=== PATIENT | male | born 1990 | race Caucasian/White ===

== ENCOUNTER 2022-03-14 15:08 | Outpatient (REF) | payer OTHER, SELFPAY ==
[2022-03-14 17:52] LABS: Appearance Urine Turbid; Color Urine Yellow; Glucose Urine UA Negative (Negative); Leukocyte Esterase Urine Negative (Negative); Nitrite Urine Negative (Negative); PH 8.5 (5.0-9.0); Urine Blood Negative (Negative); Urine Ketones Negative (Negative); Urine Protein Negative (Neg-Trace)
[2022-03-14 18:00] LABS: Bacteria Urine None Seen (None Seen); Hyaline Casts Urine 0-2 /LPF (0-2); RBC Urine 0-2 /HPF (0-2); Squamous Epithelial Cell Urine 0-2 /HPF (0-2); WBC Urine 0-5 /HPF (0-5)
[2022-03-14 18:26] LABS: Creatinine Urine 116.63 mg/dL; Total Protein Urine Random < 7 mg/dL (<12)
[2022-03-14 18:48] LABS: C Reactive Protein < 0.04 mg/dL (< or = 0.50)
[2022-03-14 18:53] LABS: Rheumatoid Factor < 13.0 IU/mL (<15.0); TSH reflex Free T4 1.52 uIU/mL (0.32-4.0)
[2022-03-14 18:57] LABS: Erythrocyte Sedimentation Rate 2 MM/HR (0-15)
[2022-03-19 00:47] LABS: Complement C3 95 mg/dL (82-185)
[2022-03-19 11:54] LABS: Thyroglobulin Antibodies <1 IU/mL (< or = 1); Thyroid Peroxidase Antibodies 1 IU/mL (<9)
[2022-03-19 15:18] LABS: Prot Elec - Alpha1 0.2 g/dL (0.2-0.3); Prot Elec - Alpha2 0.5 g/dL (0.5-0.9); Prot Elec - Beta 1 0.4 g/dL (0.4-0.6); Prot Elec - Beta 2 0.4 g/dL (0.2-0.5); Prot Elec - Gamma 0.9 g/dL (0.8-1.7); Prot Elec - Total Protein 7.4 g/dL (6.1-8.1)
[2022-03-19 16:23] LABS: Cyclic Citrullinated Peptide <16 UNITS
[2022-03-20 06:14] LABS: PTT (LAC) Screen 32 sec (<=40)
[2022-03-20 09:19] LABS: Anti DNA DS Antibody 1 IU/mL; Antibody to SS-A Antigen <1.0 NEG AI (<1.0 NEG); Antibody to SS-B Antigen <1.0 NEG AI (<1.0 NEG); Cardiolipin IgG Ab <2.0 GPL-U/mL; Cardiolipin IgM Ab <2.0 MPL-U/mL; SM/Ribonucleoprotein Ab <1.0 NEG AI (<1.0 NEG); Smith Protein <1.0 NEG AI (<1.0 NEG)
[2022-03-21 13:02] LABS: Centromere Protein A Ab <11 SI (<11); Centromere Protein B Ab <11 SI (<11); Fibrillarin Ab <11 SI (<11); PM SCL 100 Ab <11 SI (<11); PM SCL 75 Ab <11 SI (<11); RNA Polymerase III RP11 Ab <11 SI (<11); RNA Polymerase III RP155 Ab <11 SI (<11); SCL-70 Extractable Nuclear Ab <11 SI (<11); Th-To Ab <11 SI (<11); U1 SNRNP RNP 70KD <11 SI (<11); U1 SNRNP RNP A <11 SI (<11); U1 SNRNP RNP C <11 SI (<11)
[2022-03-21 14:13] LABS: DNAds, Crithidia Antibody Negative (Negative)
[2022-03-21 17:04] LABS: IgA 131 mg/dL (47-310); IgG 973 mg/dL (600-1640); IgM 32 mg/dL (50-300)
[2022-03-21 17:18] LABS: Beta-2 Glycoprotein IgA <2.0 U/mL (<20.0); Beta-2 Glycoprotein IgG <2.0 U/mL (<20.0); Beta-2 Glycoprotein IgM <2.0 U/mL (<20.0)
[2022-03-22 17:35] LABS: Cryoglobulin, Qual NONE DETECTED ((NDT))
== END 2022-03-14 15:09 | disposition home or self-care (01) ==
LOC: HO.LAB 15:08
PROVIDERS: PCP Pediatrics; Visit Provider Student in an Organized Health Care Education/Training Program
DX: M35.01 Sjogren syndrome with keratoconjunctivitis (principal); R76.8 Other specified abnormal immunological findings in serum; R53.83 Other fatigue; M25.541 Pain in joints of right hand; D68.61 Antiphospholipid syndrome
CPT/HCPCS: 36415; 81001; 82550; 82595; 82784; 84156; 84165; 84182; 84443; 85597; 85613; 85652; 85730; 86140; 86146; 86147; 86160; 86200; 86225; 86235; 86255; 86334; 86376; 86431; 86800; 99212

== ENCOUNTER → 2022-05-07 15:20 | Outpatient (BNVA) | payer OTHER, SELFPAY | PROVIDERS: PCP Pediatrics; Visit Provider Student in an Organized Health Care Education/Training Program | DX: R76.8 Other specified abnormal immunological findings in serum (principal) | CPT/HCPCS: 99212 ==

== ENCOUNTER 2022-12-24 14:40 | Outpatient (AMB) | payer OTHER, SELFPAY ==
--- NOTE | 2022-12-24 14:41 | MHC.OFFVIS ---
Intake Vital Signs 12/24/22 14:44 Height 5 ft 9 in Weight 141 lb 1.533 oz BMI 20.8 BP 106/64 Blood Pressure Location Rt brachial Position Sitting Pulse 89 Pulse Source Pulse Oximeter Temp 98.1 F Temp Source Skin Pulse Oximetry (%) 96 Intake Visit Reasons: Sjogren's Intake Note: Pt seen today for sjogren's follow up. Reports no changes Material Handling Equipment Stevedore Required: No Accompanied by: Self / Same As Patient Allergies Seasonal Allergies Allergy (Verified 12/24/22 14:45) Unknown HPI HPI Comments History of Present Illness Details 32-year-old male with Sjogren's (+ve MARLO, dry mouth, lymphocytic sialadenitis on lip biopsy) presents for follow-up. Patient states he is doing a little better overall. 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 Uses artificial tears once daily. Reports that his main symptoms remain his digestive issues. He is now avoids gluten and dairy, there are other food items that he is sensitive to but has difficulty with consistently avoiding them. He has gained a few lb since last visit. Denies any fevers. No other complaints Initial history: This is a 31-year-old male with a past medical history of GERD, IBS, seasonal affective disorder who presents for evaluation of Sjogren's. Patient has stated that in 2017 he was diagnosed with an autoimmune disease. At that time he would have joint and muscle pain with exertion. Fatigue as well as eye and mouth dryness. He had a lip biopsy in 2018 which showed lymphocytic sialadenitis. He was labeled as Sjogren syndrome. He has been using cevimeline since then and Biotene once or twice a day with improvement of his oral dryness. Denies any history of recurrent dental infections. He also has dry eyes and was evaluated by Ophthalmology years ago. He uses artificial tears once or twice a day which do help. Patient also has been having multiple GI complaints with dyspepsia and acid reflux. He had an EGD and biopsy which showed reflux esophagitis and was started on a PPI. Patient also states that he gets cold quite easily but denies any significant color changes of his fingers or toes. [facility] Medical History Scoliosis Seasonal affective disorder Diarrhea IBS (irritable bowel syndrome) Leukopenia Liver cyst Esophageal dysmotility Keratoconjunctivitis MARLO positive Sjogrens syndrome Inguinal hernia Hiatal hernia Surgical History Hx of tonsillectomy History of removal of skin mole Hx of colonoscopy Family History Father Gout Mother History of Roxi thyroiditis Maternal Uncle Acute arthritis Social History Household Members: Family Alcohol intake: never Patient Tobacco Use Status: Never used Tobacco Current occupational status: unemployed Review of Systems Eyes Reports dry eyes ENT Reports dry mouth GI Reports dyspepsia and Reports heartburn Physical Exam Vital Signs: Last Vital Signs Temp 98.1 F 12/24/22 14:44 Pulse 89 12/24/22 14:44 BP 106/64 12/24/22 14:44 Pulse Ox 96 12/24/22 14:44 BMI result Body Mass Index 20.8 Const General: cooperative, healthy appearing and comfortable Nutritional Appearance: thin Orientation/consciousness: patient oriented x3 Limitations: no limitations HEENT Head: Yes normocephalic and Yes atraumatic Mouth: moist mucous membranes Resp Effort & Inspection: normal respiratory effort and able to speak in complete sentences Auscultation: clear to auscultation bilaterally Cardio Rate: regular rate Rhythm: regular rhythm Heart sounds: S1 normal heart sound present and S2 normal heart sound present GI Inspection: No distended Palpation (GI): Soft to palpation and nontender Skin General skin exam: no rashes or lesions noted Neuro General: patient oriented x3 Extrem Other: No active synovitis Normal nailfold capillaroscopy Results Reviewed Results Reviewed: Labs 2017 MARLO 1:1280 homogeneous Lip biopsy 2018: Lymphocytic sialadenitis Assessment & Plan Assessment & Plan (1) Sjogren syndrome with keratoconjunctivitis: Code(s): M35.01 - Sjogren syndrome with keratoconjunctivitis Plan: This is a 31-year-old male with Sjogren's who presents for follow-up.? started in 2017 (arthralgias, dry eyes, dry mouth, lip biopsy showing lymphocytic sialadenitis,? MARLO 1-1280)? Hydroxychloroquine was suggested in the past but patient preferred not to take any medications. ? Patient's symptoms are well controlled with Evoxac twice daily, Biotene mouthwash once daily and artificial tears once daily Continue Evoxac 30 mg twice daily Follow-up in 1 year Plan I spent 15 minutes reviewing patient's chart, evaluating patient, counseling patient and documenting in the chart Medications: Changed From cevimeline 1 cap PO TID 180 caps 1RF To cevimeline 1 cap PO BID 360 caps 1RF Coding Level of Care Code Est Pt Level 3 (34780) Diagnoses Sjogren syndrome with keratoconjunctivitis M35.01
[2022-12-24 14:44] VITALS: BP 106/64; PULSE 89; TEMP 36.7; O2SAT 96; BMI 20.8
== END 2022-12-24 14:57 | disposition home or self-care (01) ==
PROVIDERS: PCP Pediatrics; Visit Provider Student in an Organized Health Care Education/Training Program
DX: M35.01 Sjogren syndrome with keratoconjunctivitis (principal)
CPT/HCPCS: 99213

== ENCOUNTER → 2022-12-24 14:40 | Outpatient (BNVA) | payer OTHER, SELFPAY | PROVIDERS: PCP Pediatrics; Visit Provider Student in an Organized Health Care Education/Training Program | DX: M35.01 Sjogren syndrome with keratoconjunctivitis (principal) | CPT/HCPCS: 99212 ==

== ENCOUNTER 2023-12-25 14:37 | Outpatient (AMB) | payer OTHER, SELFPAY ==
--- NOTE | 2023-12-25 14:58 | A.OFFVIS_ITS ---
Vital Signs 12/25/23 15:02 Height 5 ft 9 in Weight 164 lb 10.965 oz BMI 24.3 BP 102/70 Blood Pressure Location Lt brachial Position Sitting Pulse 83 Pulse Source Pulse Oximeter Pulse Oximetry (%) 95 Oxygen Delivery Method Room Air Intake Visit Reasons: Sjogren's Intake Note: Patient presents for Sjogren's. Allergies Seasonal Allergies Allergy (Verified 12/25/23 15:00) Unknown Medication List - Last Reconciled 12/25/23 by Mary Jo Cao MD albuterol sulfate 90 mcg/actuation (ProAir HFA) 2 puffs inhalation Q6H PRN azelastine 1 spray intranasal BID cetirizine (All Day Allergy (cetirizine)) 10 mg PO DAILY PRN cevimeline 1 cap PO BID citalopram 10 mg PO DAILY lorazepam 0.5 mg PO Q8H PRN omeprazole 20 mg PO DAILY HPI Comments Details: 33-year-old male with Sjogren's (+ve MARLO, dry mouth, lymphocytic sialadenitis on lip biopsy) presents for follow-up. Patient states that he is doing better overall. He started taking an antidepressant about 8 months ago with improved mood. He has put on about 25 lb of weight. He states that he is eating better. 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 He states that he still requires the Evoxac Twice daily. He also uses artificial tears and a humidifier at home. Denies any significant joint pain swelling or stiffness. Denies any skin rashes. Initial history: This is a 31-year-old male with a past medical history of GERD, IBS, seasonal affective disorder who presents for evaluation of Sjogren's. Patient has stated that in 2017 he was diagnosed with an autoimmune disease. At that time he would have joint and muscle pain with exertion. Fatigue as well as eye and mouth dryness. He had a lip biopsy in 2018 which showed lymphocytic sialadenitis. He was labeled as Sjogren syndrome. He has been using cevimeline since then and Biotene once or twice a day with improvement of his oral dryness. Denies any history of recurrent dental infections. He also has dry eyes and was evaluated by Ophthalmology years ago. He uses artificial tears once or twice a day which do help. Patient also has been having multiple GI complaints with dyspepsia and acid reflux. He had an EGD and biopsy which showed reflux esophagitis and was started on a PPI. Patient also states that he gets cold quite easily but denies any significant color changes of his fingers or toes. [facility] Medical History Scoliosis Seasonal affective disorder Diarrhea IBS (irritable bowel syndrome) Leukopenia Liver cyst Esophageal dysmotility Keratoconjunctivitis MARLO positive Sjogrens syndrome Inguinal hernia Hiatal hernia Surgical History Hx of tonsillectomy History of removal of skin mole Hx of colonoscopy Family History Father Gout Mother History of Roxi thyroiditis Maternal Uncle Acute arthritis Social History Household Members: Family Alcohol intake: never Patient Tobacco Use Status: Never used Tobacco Current occupational status: unemployed Review of Systems Eyes Reports dry eyes ENT Reports dry mouth Physical Exam Vital Signs: Last Vital Signs Pulse 83 12/25/23 15:02 BP 102/70 12/25/23 15:02 Pulse Ox 95 12/25/23 15:02 Oxygen Delivery Method Room Air 12/25/23 15:02 BMI result Body Mass Index 24.3 Const Other: Gained some weight since last visit. Looks healthier now General: cooperative, healthy appearing and comfortable Nutritional Appearance: average body habitus and well nourished Orientation/consciousness: patient oriented x3 Limitations: no limitations HEENT Head: Yes normocephalic and Yes atraumatic Mouth: moist mucous membranes Resp Effort & Inspection: normal respiratory effort and able to speak in complete sentences Auscultation: clear to auscultation bilaterally Cardio Rate: regular rate Rhythm: regular rhythm Heart sounds: S1 normal heart sound present and S2 normal heart sound present GI Inspection: No distended Palpation (GI): Soft to palpation and nontender Skin General skin exam: no rashes or lesions noted Neuro General: patient oriented x3 Extrem Other: No active synovitis Normal nailfold capillaroscopy Results Reviewed Results Reviewed: Labs 2017 MARLO 1:1280 homogeneous Lip biopsy 2018: Lymphocytic sialadenitis Assessment & Plan Assessment & Plan (1) Sjogren syndrome with keratoconjunctivitis: Code(s): M35.01 - Sjogren syndrome with keratoconjunctivitis Category: Medical Plan: This is a 33-year-old male with Sjogren's who presents for follow-up.? started in 2017 (arthralgias, dry eyes, dry mouth, lip biopsy showing lymphocytic sialadenitis,? MARLO 1-1280)? Hydroxychloroquine was suggested in the past but patient preferred not to take any medications. ? Patient's sicca symptoms are well controlled with Evoxac twice daily, Biotene mouthwash once daily and artificial tears once daily. Generally patient is doing better since starting an antidepressant. Patient is eating better, has gained weight and has a full-time job Continue Evoxac 30 mg twice daily Follow-up in 1 year Plan I spent 15 minutes reviewing patient's chart, evaluating patient, counseling patient and documenting in the chart Coding Level of Care Code Est Pt Level 3 (56807) Diagnoses Sjogren syndrome with keratoconjunctivitis M35.01
[2023-12-25 15:02] VITALS: BP 102/70; PULSE 83; O2SAT 95; BMI 24.3
== END 2023-12-25 15:19 | disposition home or self-care (01) ==
PROVIDERS: PCP Pediatrics; Visit Provider Student in an Organized Health Care Education/Training Program
DX: M35.01 Sjogren syndrome with keratoconjunctivitis (principal)
CPT/HCPCS: 99213

== ENCOUNTER → 2023-12-25 14:37 | Outpatient (BNVA) | payer OTHER, SELFPAY | PROVIDERS: PCP Pediatrics; Visit Provider Student in an Organized Health Care Education/Training Program | DX: M35.01 Sjogren syndrome with keratoconjunctivitis (principal) | CPT/HCPCS: 99212 ==

== ENCOUNTER 2024-10-08 12:59 | Outpatient (REF) | payer OTHER, SELFPAY ==
--- OUTSIDE RECORDS SUMMARY | 2024-10-08 13:01 | XMS_ITS | Continuity of Care Document ---
Author Organization [place] - [facility], Allergy Address [address] [address] Care Team Providers Care Php Consultant Name Role Phone GARY LANDEROS Primary Care Provider Assessment Encounter Date Assessment Date Assessment LastModified by Organization Details LastModified Time 10/06/2024 10/06/2024 Visit With: Brenda Contreras Use of Antihistamine s: No If yes: Vial Test Yes Change in medications: No If yes Increase in asthma symptoms If yes, inhaler use: Reaction to last injections: No If yes: Allergy Symptoms: Other: Missed: Dose Aware of Vial Test Aware: Notes: [email or web address] Not available 10/06/2024 17:20:59 Plan of Treatment Reminders Order Date Submit Date Provider Last Modified By Organization Details Last Modified Time Details Appointments [facility]- Allergy f-up 6mon 2024 11:30A M DENNIS CRUMP PA-C Not available Not available Not available Lab None recorded . Referral None recorded . Procedures None recorded . Surgeries None recorded . Imaging None recorded . Medication Orders None recorded . Patient TargetsNo targets recorded. Patient InstructionsNo instructions recorded. Reason for Referral None Reported. Problems Name Problem SNOMED Code Status Onset Date Resolution Date Notes Provider Name and Address Organization Details Recorded Time Chronic sinusitis 92884825 Active 2016 Other chronic sinusitis ; Note: Date Diagnosed : 7 2:32 PM (J32.8) Not Available [facility] 4 03:13:56 Allergic rhinitis 33026015 Active 2017 Allergic rhinitis: Due to other allergen; Note: Date Diagnosed : 05/02/2017 1:26 PM (477.8) Other allergic rhinitis; Note: Date Diagnosed : 7 2:25 PM (J30.89) ; Start Date : 7 Not Available [facility] 4 03:13:56 Abnormal auditory perception 57264843 Active 2023 FRANCISCA LYON, AuD [address], [place], [address] , [place] - [facility] 4 14:43:31 Nasal congestion 42277657 Active 2023 Eloisa thakur [place] - [facility] 4 14:59:52 Perennial allergic rhinitis 105541130 Active 2023 ERICA RUBIN RN [address], [place], [address] , [facility] - [facility] 4 15:10:32 Problem Notes None recorded. Procedures Surgical History Date Name Laterality Status Provider Name and Address Organization Details Recorded Time 10/07/19 25 Allergy Immunotherapy Injections completed EDWIN MEJIA [address] [place] [address], [phone], [place] - [facility] 10/06/2024 17:20:54 10/02/19 25 Allergy Immunotherapy Injections completed ERICA RUBIN RN [address] [address] [place] [address], [address], [place] [facility] 10/01/2024 11:39:14 09/23/19 25 Allergy Immunotherapy Injections completed ERICA RUBIN RN [address] [place] [address], [address], [place] [facility] 09/22/2024 17:07:13 09/16/19 25 Allergy Immunotherapy Injections completed ERICA RUBIN RN [address] [facility] [address] [place] [address], [address], [place] [facility] 09/15/2024 17:13:18 09/02/19 25 Allergy Immunotherapy Injections completed EWDIN BELLO [address], [place], [address], [place] [facility] 09/01/2024 16:59:45 08/28/19 25 Allergy Immunotherapy Injections completed ERICA RUBIN RN [address], [place], [address], [place] [facility] 08/27/2024 14:31:48 08/21/19 25 Allergy Immunotherapy Injections completed BRENDA CONTRERAS RMA [address], [place], [address], [place] [facility] 08/20/2024 11:48:22 08/14/19 25 Allergy Immunotherapy Injections completed CLEMENTE ANGELO RMA [address], [place], [address], [place] [facility] 08/13/2024 14:24:42 08/05/19 25 Allergy Immunotherapy Injections completed EDWIN MEJIA [address] [facility], [place], [address], [place] [facility] 08/04/2024 17:23:51 07/24/19 25 Allergy Immunotherapy Injections completed CLEMENTE ANGELO RMA [address], [place], [address], [place] [facility] 07/23/2024 11:41:48 07/17/19 25 Allergy Immunotherapy Injections completed ERICA RUBIN RN [address] [place] [address], [address], [place] [facility] 07/16/2024 12:07:51 07/10/19 25 Allergy Immunotherapy Injections completed ERICA RUBIN RN [address], [place], [address], [place] [facility] 07/09/2024 11:50:56 07/01/19 25 Allergy Immunotherapy Injections completed CLEMENTE ANGELO, RMA [address], [place], [address], [place] [facility] 06/30/2024 16:42:02 06/24/19 25 Allergy Immunotherapy Injections completed CLEMENTE ANGELO, RMA [address], [place], [address], [place] [facility] 06/23/2024 17:17:04 06/17/19 25 Allergy Immunotherapy Injections completed EDWIN BELLO [address], [place], [address], [place] [facility] 06/17/2024 15:31:55 06/10/19 25 Allergy Immunotherapy Injections completed ERICA RUBIN RN [address], [place], [address], [place] [facility] 06/09/2024 17:04:44 05/12/19 25 Allergy Immunotherapy Injections completed BRENDA CONTRERAS RMA [address], [place], [address], [place] [facility] 05/12/2024 17:10:54 05/05/19 25 Allergy Immunotherapy Injections completed FRANC MEJIAA [address], [place], [address], [place] [facility] 05/05/2024 16:38:37 04/28/19 25 Allergy Immunotherapy Injections completed EDWIN MEJIA [address], [place], [address], [place] [facility] 04/28/2024 17:21:23 04/21/19 25 Allergy Immunotherapy Injections completed FRANC MEJIAA [address], [place], [address], [place] [facility] 04/21/2024 17:09:01 04/07/19 25 Allergy Immunotherapy Injections completed ERICA RUBIN RN [address], [place], [address], [place] [facility] 04/07/2024 17:05:44 03/31/19 25 Allergy Immunotherapy Injections completed FRANC MEJIAA [address], [place], [address], [place] [facility] 03/31/2024 17:00:10 03/15/20 24 Allergy Immunotherapy Injections completed BRENDA CONTRERAS RMA [address], [place], [address], [place] [facility] 03/15/2024 14:06:22 03/08/20 24 Allergy Immunotherapy Injections completed ERICA RUBIN RN [address], [place], [address], [place] [facility] 03/08/2024 14:46:21 03/03/20 24 Allergy Immunotherapy Injections completed BRENDA CONTRERAS RMA [address], [place], [address], [place] [facility] 03/03/2024 17:13:13 02/10/20 24 Allergy Immunotherapy Injections completed BRENDA CONTRERAS RMA [address], [place], [address], [place] [facility] 02/10/2024 17:05:46 02/04/20 24 Allergy Immunotherapy Injections completed CLEMENTE ANGELO RMA [address], [place], [address], [place] [facility] 02/04/2024 17:05:18 01/21/20 24 Allergy Immunotherapy Injections completed BRENDA CONTRERAS RMA [address], [place], [address], [place] [facility] 01/21/2024 17:05:51 01/14/20 24 Allergy Immunotherapy Injections completed CLEMENTE ANGELO RMA [address], [place], [address], [place] [facility] 01/14/2024 17:12:55 01/07/20 24 Allergy Immunotherapy Injections completed BRENDA CONTRERAS RMA [address], [place], [address], [place] [facility] 01/07/2024 17:04:23 12/31/19 24 Allergy Immunotherapy Injections completed BRENDA CONTRERAS RMA [address], [place], [address], [place] [facility] 12/31/2023 17:14:57 12/24/19 24 Allergy Immunotherapy Injections completed CLEMENTE ANGELO RMA [address], [place], [address], [place] [facility] 12/24/2023 17:08:23 12/17/19 24 Allergy Immunotherapy Injections completed EDWIN MEJIA [address] [facility], [address], [place] [facility] 12/17/2023 17:23:27 12/10/19 24 Allergy Immunotherapy Injections completed EDWIN MEJIA [address] [facility],[address], [address], [place] [facility] 12/10/2023 17:24:29 12/03/19 24 Allergy Immunotherapy Injections completed CLEMENTE ANGELO [facility] 100 [facility],[address], [address], [place] [facility] 12/03/2023 17:11:21 11/26/19 24 Allergy Immunotherapy Injections completed ERICA RUBIN RN 100 [facility],[address], [address], [place] [facility] 11/26/2023 17:30:55 11/19/19 24 Allergy Immunotherapy Injections completed CLEMENTE ANGELO [facility] 100 [facility],[address], [address], [place] [facility] 11/19/2023 17:14:31 11/12/19 24 Allergy Immunotherapy Injections completed ERICA RUBIN RN 100 [facility],[address], [address], [place] [facility] 11/12/2023 17:26:14 11/03/19 24 Allergy Immunotherapy Injections completed ERICA RUBIN RN 100 [facility],[address], [address], [place] [facility] 11/03/2023 15:32:32 10/24/19 24 JMSNasal/Sinus Endoscopy completed Eloisa Liao [place] - [facility] 10/24/2023 14:55:56 10/24/19 24 Comp Audio with Tymps - [id number] & 39194 completed Angi CROCKETT [address] [facility], [place], [address], [place] [facility] 10/24/2023 14:35:27 Imaging Results None recorded. Procedure Notes None recorded. Medical Equipment None Reported. Medications Name Sig Start Date Stop Date Status Note LastModified by Organization Details LastModified Time lorazepam 0.5 mg tablet TAKE ONE TABLET BY MOUTH EVERY 8 HOURS NEEDED FOR ANXIETY. TAKE SPARINGL Y active Not Available Not Available No t Available doxycycli ne monohydra te 100 mg capsule TAKE ONE CAPSULE BY MOUTH TWICE A DAY 11/02 completed Not Available Not Available Not Available cevimelin e 30 mg capsule TAKE ONE CAPSULE BY MOUTH TWICE A DAY active Not Available Not Available No t Available omeprazol e 20 mg capsule,d elayed release 2017 active Medicati on ID: [id number] D uration Value: 30 Brand Name: omeprazo le Send Method: E-Prescr ibed Sub s Allowed: subs OK Speci al Instruct ion: TAKE ONE CAPSULE BY MOUTH EVERY MORNING BEFORE BREAKFAS T Medica tionGene ricName: omeprazo le Not Available Not Available Not Available azelastin e 137 mcg (0.1 %) nasal spray Inhale 2 spray into both nostrils twice a day as directed 11/02 completed Medicati on ID: [id number] D uration Value: 30 Prescri bed By Name: John roblero MD Brand Name: azelasti snuday Send Method: E-Prescr ibed Sub s Allowed: subs OK Medic ationGen ericName : azelasti ne Not Available Not Available Not Available epinephri ne 0.3 mg/0.3 mL injection , auto-inje ctor INJECT 1 PEN INTO MUSCLE FOR ANAPHYLA XIS DIRECTED active Not Available Not Available No t Available fluoxetin e 20 mg capsule TAKE ONE CAPSULE BY MOUTH EVERY DAY active Not Available Not Available No t Available bupropion HCl XL 150 mg 24 hr tablet, extended release TAKE ONE TABLET BY MOUTH IN THE MORNING active Not Available Not Available No t Available escitalop gene 5 mg tablet TAKE ONE TABLET BY MOUTH DAILY active Not Available Not Available No t Available Vitals None Recorded Social History None recorded. Functional Status None recorded. Mental Status None recorded. Family History Nothing Reported. Medical History No medical history recorded. Past Encounters Encounter ID Performer Location Encounter Start Date Encounter Closed Date Diagnosis/Indication Diagnosis SNOMED-CT Code Diagnosis ICD10 Code Diagnosis Note [id number] ERICA RUBIN RN Allergy [address] [place] [address] [address] [place] [address] 09/15/2024 16:57:26 09/15/2024 17:13:50 Perennial allergic rhinitis 742826775 J30.89 [id number] BRENDA CONTRERAS [facility] Allergy [address] [place] [address] 09/22/2024 16:56:37 09/22/2024 17:07:39 Perennial allergic rhinitis 500225457 J30.89 [id number] ERICA RUBIN RN Allergy [address] [place] [address], [place] [address] 10/01/2024 11:31:13 10/01/2024 11:39:45 Perennial allergic rhinitis 654106940 J30.89 [id number] BRENDA CONTRERAS [facility] Allergy [address] [place] [address], [place] [address] 10/06/2024 16:55:57 10/06/2024 17:21:28 Perennial allergic rhinitis 905261014 J30.89 Health Concerns Section Related Observation LastModified by Organization Detai ls LastModified Time None Recorded Concern Status LastModified by Organization Details LastModified Time None Recorded Payers Encounter Date Sequence Insurance Name Policy Number Policy Zepeda Covered Member ID Zepeda Member ID Guarantor Name 10/06/2024 2 [place] [facility] Antolin Panda [id number] Antolin Panda 10/06/2024 1 [facility] - DOS ON OR AFTER 2022 - ONE CARE (MEDICARE REPLACEMENT/A DVANTAGE - HMO) Antolin Panda [id number] Antolin Panda
--- OUTSIDE RECORDS SUMMARY | 2024-10-08 13:01 | XMS_ITS | Clinical Summary ---
Author Organization [facility] 230 [facility] Address [address] [place] [address] Phone Care Team Providers Care Rodeo Clown Name Role Phone George Okeefe MD Primary Care Provider [phone] Allergies Active Allergy Reactions Criticality Noted Date Comments Levonorgestrel-Ethinyl Estrad 2006 Medications albuterol HFA (PROAIR HFA ; PROVENTIL HFA ; VENTOLIN HFA) 90 mcg/actuation inhaler Inhale 2 Puffs into the lungs every 4 hours as needed for Cough or Wheezing. 8 Active cevimeline (EVOXAC) 30 mg capsule Take 1 Capsule by mouth 3 times daily. 2 Active omeprazole (PriLOSEC) [address] capsule Take 1 Cap by mouth every morning (before breakfast) for 360 days. 9 Active fexofenadine (CHEPE) 180 mg tablet Take 1 tablet (180 mg total) by mouth 1 (one) time each day. Active LORazepam (ATIVAN) 0.5 mg tabletIndicatio ns:Anxiety Take 1 Tablet by mouth every 8 hours as needed for Anxiety. Take sparingly 20 tablet 5 Active sertraline (ZOLOFT) 25 mg tablet Take 1 tablet (25 mg total) by mouth 1 (one) time each day. Take one tablet daily Active atomoxetine (STRATTERA) 10 mg capsule Take by mouth 1 (one) time each day. Swallow capsule whole; do not open. If opened accidentally, do not touch eyes; wash hands immediately (product is an eye irritant). Active Active Problems Problem Noted Date Diagnosed Date Anxiety 10/22/2021 Hiatal hernia 01/04/2021 Right inguinal hernia 07/07/2018 Sjogren's syndrome ([facility] V24) 08/12/2017 Overview (04/02/2024): Onset ~ 2016 Sicca symptoms, pos MARLO. June 2017 lip biopsy: Lymphocytic sialadenitis Sjogren's Ab, anti-dsDNA negative. Helped by Evoxac Keratoconjunctivitis sicca 05/16/2017 Esophageal dysmotility 05/02/2017 Overview (04/02/2024): Per barium swallow 03/2017 Normal esophageal manometry study 01/2018 Barium swallow 02/04 [place] grade A esophagitis 03/25/2017 Overview (04/02/2024): 03/25/2017: [place] grade A reflux esophagitis on endoscopy. Benign liver cyst 02/20/2017 Overview (04/02/2024): 03/02- incidental finding of abdominal sono Leukopenia 01/02/2017 Overview (04/02/2024): 12/31- 3.7, prev 4.4. F/u CBC in 6 months. 03/02- 4.6 Oral herpes 08/15/2015 IBS (irritable bowel syndrome) 01/25/2015 Overview (04/02/2024): 03/02 Referred to GI, sono abdomen normal. Diarrhea 10/17/2014 Overview (04/02/2024): Colonoscopy 45 cm only. 10/29 neg Sx felt to be IBS 03/01 colonoscopy neg Seasonal affective disorder ([facility] V24) 2008 Overview (04/02/2024): Sees clinical nurse practioner and counselor Idiopathic scoliosis and kyphoscoliosis 11/05/19 07 Encounters Date Type Department Care Team Description 07/09/2024 1:30 PM EDT Office Visit Adult Medicine [address] [phone] Theo Lopez PA Anxiety (Primary Dx); Attention deficit hyperactivity disorder (ADHD), unspecified ADHD type; Sjogren's syndrome, with unspecified organ involvement (CMS/[facility] V24) from Last 3 Months Immunizations Name Administration Dates Next Due DTP 03/04/1994, 3,1992,10/30 DTaP (Infanrix) 6wks to less than 7yo 08/25/1996 DQbH-FMM-YSX (Pentacel) 2mo to less than 5yo 12/07/1993,02/28/1993,1992,10/30 Hepatitis B Pediatric (Enger ix B; Recombivax HB) to less than 20 yo 12/07/1993,06/06/1993,1992 MMR, measles mumps and rubel la Live (Priorix; M-M-R II) 12mo and older 08/25/1997,12/07/1993 Meningococcal MCV4P 11/04/2006 OPV 08/25/1996, 4,1992,10/30 Td, Unspecified 09/14/2003 Tdap Tetanus diptheria acell ular pertussis (Boostrix; Adacel) 7yo and older 11/13/2007 Varicella live (Varivax) 12m o and older 11/14/2008,08/25/1997 Surgical History Surgery Date Site/Laterality Comments MOLE REMOVAL PROCEDURE: HISTORICAL MOLE (REMOVAL OF); COMMENT: nevus sebacious COLONOSCOPY 10/17/2014 PROCEDURE: HISTORICAL COLONOSCOPY; COMMENT: Negative/incomplete examination to 50 cm, random biopsies normal. COLONOSCOPY 02/20/2016 PROCEDURE: HISTORICAL COLONOSCOPY; COMMENT: [facility]; normal with normal random bx. UPPER GASTROINTESTINAL ENDOSCOPY 03/25/2017 PROCEDURE: [place] UPPER GI ENDOSCOPY PERFORMED; COMMENT: Minimal erosive esophagitis, not on PPI or H2 treatment. [place] grade A. TONSILLECTOMY PROCEDURE: HISTORICAL TONSILLECTOMY Medical History Medical History Date Comments Unspecified otitis media ,, ,,, DX:Unspecified otitis media Pneumonia, organism unspecified(486) DX:Pneumonia, organism unspecified(486) Reflux esophagitis 03/25/2017 DX:Reflux eso phagitis; COMMENT: 03/25/2017: [place] grade A reflux esophagitis on endoscopy. Sliding hiatal hernia 05/02/2017 DX:Sliding hiatal hernia Esophageal dysmotility 05/02/2017 DX:Esopha geal dysmotility; COMMENT: Per barium swallow 03/2017 Sjogren's disease (CMS/HCC V24) DX:Sjogren's disease ([facility]) Family History Medical History Relation Name Comments Other: gout Father Thyroid disease Mother hypothyroidi sm; Roxi's Other: plaque psoriasis Mother's side Rheum arthritis Mother's side cousins Other: PCOS Other mother's side Other: psoriatic arthritis Uncle m other's side Relation Name Status Comments Brother Alive 11/21/90 francisco Father Alive 06/14/63 Mother Alive 03/29/65 Mother's side Other Uncle Social History Tobacco Use Types Packs/Day Years Used Date Smoking Tobacco: Former Cigarettes 0 2008 - 03/17/2013 Smokeless Tobacco: Never Tobacco Cessation:Counseling Given: Not Answered Alcohol Use Standard Drinks/Week Comments No 0 (1 standard drink = 0.6 oz pur e alcohol) Sex and Gender Information Value Date Recorded Sex Assigned at Not on file Legal Sex Male 9:35 PM EST Gender Identity Not on file Sexual Orientation Not on file Obstetrics History Last Filed Vital Signs Vital Sign Reading Time Taken Comments Blood Pressure 120/62 07/09/2024 1:20 PM EDT Pulse 76 07/09/2024 1:20 PM EDT Temperature 36.7 C (98 F) 07/09/2024 1:20 PM EDT Respiratory Rate - - Oxygen Saturation - - Inhaled Oxygen Concentration - - Weight 78.6 kg (173 lb 3.2 oz) 07/09/2024 1:20 P M EDT Height 175.3 cm (5' 9 ) 07/09/2024 1:20 PM EDT Body Mass Index 25.58 07/09/2024 1:20 PM EDT Plan of Treatment Upcoming Encounters Date Type Department Care Team (Late st Contact Info) Description 01/21/2025 1:30 PM EST Office Visit Adult Medicine - [place] [address] [place] [address] Theo Lopez PA [address] [place] [address] Health Maintenance Due Date Last Done Comments Pneumococcal Vaccine: Pediatrics (0 to 5 Years) and At-Risk Patients (6 to 49 Years) (1 of 2 - PCV) 08/24/2011 Medicare Annual Wellness Visit 02/16/2022 Social Influencers of Health Screening 02/16/2022 COVID-19 Vaccine ( - season) 2023 Influenza Vaccine (#1) 2024 DTaP,Tdap,and Td Vaccines (9 - Td or Tdap) 01/15/2034 01/16/2024, 11/13/2007, 09/14/2003, Additional history exists HIB Vaccines Completed 12/07/1993, 11/16, 02/28/1993, Additional history exists Hepatitis B Vaccines Completed 12/07/1993, 06/06/1993, 1992 IPV Vaccines Completed 08/25/1996, 02/14, 12/07/1993, Additional history exists MMR Vaccines Completed 08/25/1997, 12/07/1993 Meningococcal ACWY Vaccine Aged Out 11/04/2006 N o longer eligible based on patient's age to complete this topic Varicella Vaccines Completed 11/14/2008, 08/25/1997 HIV Screening Completed 09/16/2014 Hepatitis C Screening Completed 04/24/2017 Depression Screening Completed 05/25/2024, 01/16/20 24 HPV Vaccines Aged Out No longer eligi ble based on patient's age to complete this topic Hepatitis A Vaccines Aged Out No long er eligible based on patient's age to complete this topic Meningococcal B Vaccine Aged Out No l onger eligible based on patient's age to complete this topic RSV Immunization Patients Under 20 months Aged Out No longer eligible based on patient's age to complete this topic Procedures Procedure Name Priority Date/Time Associated Diagnosis Comments DEPRESSION SCREENING Routine 01/16/2024 HEPATITIS C SCREENING Routine 04/24/2017 HIV SCREENING Routine 09/16/2014 from Last 3 Months or Most Recently Relevant to Health Maintenance Results * Depression Screening (01/16/2024) HM Depression Screening abstracted Historical Provider HEALTH MAINTENANCE Final Result * Hepatitis C Screening (04/24/2017) Hepatitis C Screening abstracted Historical Provider HEALTH MAINTENANCE Final Result * HIV Screening (09/16/2014) HIV Screening abstracted Historical Provider HEALTH MAINTENANCE Final Result from Last 3 Months or Most Recently Relevant to Health Maintenance Insurance [facility] MEDICARE Member Subscriber Plan / Payer (Ef fective 2019-Present) Name:Antolin Panda Relation to Subscriber:Self Name:Antolin Panda Payer ID:[id number] Group ID:[id number] Type:Not on file Address: [place] [address] [address] [address] Care Teams Rodeo Clown Relationship Specialty Start Date End Date George Okeefe MD [address] [place] [id number] PCP - General Internal Medicine 10/13/13
[2024-10-08 13:17] LABS: MANUAL DIFF FLAG NO
[2024-10-08 13:50] LABS: Hematocrit 43.1 % (42.0-52.0); Hemoglobin 15.3 g/dl (14.0-18.0); Imm Gran Abs Auto 0.01 X10*3/uL (0.00-0.03); Imm Gran Pct Auto 0.2 % (0.0-0.4); Lymphocytes Absolute Auto 1.6 X10*3/uL (1.2-4.9); Mean Corpuscular HGB Conc 35.5 g/dl (31.0-36.0); Mean Corpuscular Hemoglobin 30.1 pg (27.0-33.0); Mean Corpuscular Volume 84.7 fL (80.0-98.0); NRBC Abs Auto 0.000 X10*3/uL (0.0-0.012); NRBC Pct Auto 0.0 /100WBC (0.0-0.2); Platelet Count 291 X10*3/uL (160-400); Red Blood Count 5.09 X10*6/uL (4.60-5.80); White Blood Count 6.4 X10*3/uL (4.8-10.8)
[2024-10-08 14:25] LABS: Alanine Aminotransferase 59 U/L (0-40); Albumin Level 4.9 g/dL (3.5-5.0); Alkaline Phosphatase 81 U/L (39-117); Anion Gap 11 (12-20); Aspartate Amino Transferase 29 U/L (5-37); Blood Urea Nitrogen 22 mg/dL (9-16); Calcium 9.4 mg/dL (8.4-10.2); Carbon Dioxide 24 mmol/L (22-29); Chloride 110 mmol/L (96-108); Estimated Glomerular Filt Rate > 60; Potassium 3.5 mmol/L (3.3-5.1); Sodium 141 mmol/L (135-145); Total Protein 7.5 g/dL (6.5-8.0)
[2024-10-11 22:39] LABS: Prot Elec - Albumin 5.0 g/dL (3.8-4.8); Prot Elec - Alpha1 0.2 g/dL (0.2-0.3); Prot Elec - Alpha2 0.5 g/dL (0.5-0.9); Prot Elec - Beta 1 0.5 g/dL (0.4-0.6); Prot Elec - Beta 2 0.3 g/dL (0.2-0.5); Prot Elec - Gamma 0.8 g/dL (0.8-1.7); Prot Elec - Total Protein 7.3 g/dL (6.1-8.1)
== END 2024-10-08 13:00 | disposition home or self-care (01) ==
LOC: HO.LAB 12:59
PROVIDERS: PCP Pediatrics; Visit Provider Student in an Organized Health Care Education/Training Program
DX: M35.01 Sjogren syndrome with keratoconjunctivitis (principal); M25.561 Pain in right knee; M25.562 Pain in left knee; M79.641 Pain in right hand; M79.642 Pain in left hand; M25.521 Pain in right elbow; M25.522 Pain in left elbow; H53.8 Other visual disturbances; R10.13 Epigastric pain; Z79.899 Other long term (current) drug therapy
CPT/HCPCS: 36415; 80053; 84165; 85025; 85652; 86140; 86160; 86431; 99212

== ENCOUNTER 2024-10-08 13:18 | Outpatient (AMB) | payer OTHER, SELFPAY ==
[2024-10-08 13:24] VITALS: BP 110/62; PULSE 103; O2SAT 96; BMI 26.1
--- NOTE | 2024-10-08 13:24 | A.OFFVIS_ITS ---
Vital Signs 10/08/24 13:24 Height 5 ft 9 in Weight 177 lb 0.499 oz BMI 26.1 BP 110/62 Blood Pressure Location Lt brachial Position Sitting Pulse 103 H Pulse Source Pulse Oximeter Pulse Oximetry (%) 96 Oxygen Delivery Method Room Air Intake Visit Reasons: Sjogren's Intake Note: Patient last seen by doctor Mary Jo Cao on 12/25/23. Presents today for Sjogren's follow up and test results. Patient did have his labs done today, he was unble to get them done due to work schedule. Allergies Seasonal Allergies Allergy (Verified 10/08/24 13:26) Unknown Medication List - Last Reconciled 10/08/24 by Nerissa Guillen MD cetirizine (All Day Allergy (cetirizine)) 10 mg PO DAILY PRN cevimeline 1 cap PO BID lorazepam 0.5 mg PO Q8H PRN omeprazole 20 mg PO DAILY sertraline 25 mg PO DAILY HPI Comments Details: The patient is a 34-year-old male with depression, GERD, IBS, and Sjogren's here today for follow up Interval History: Patient last seen 10/08/[address] Cao - Doing well, no significant complaints Today - Managing his sicca sx well with eye drops, cevimeline and mouthwash - Has been having some joint pain to the elbows, knees and hands but this has responded to a gluten free diet - No lymphadenopathy - Does note some night sweats but attributes this to the weather and sometimes the cevimeline Rheumatologic History: Sjogrens syndrome - lip biopsy: Lymphocytic sialadenitis - arthralgias, dry eyes, dry mouth,? MARLO [id number] Initial history: This is a 31-year-old male with a past medical history of GERD, IBS, seasonal affective disorder who presents for evaluation of Sjogren's. Patient has stated that in 2017 he was diagnosed with an autoimmune disease. At that time he would have joint and muscle pain with exertion. Fatigue as well as eye and mouth dryness. He had a lip biopsy in 2018 which showed lymphocytic sialadenitis. He was labeled as Sjogren syndrome. He has been using cevimeline since then and Biotene once or twice a day with improvement of his oral dryness. Denies any history of recurrent dental infections. He also has dry eyes and was evaluated by Ophthalmology years ago. He uses artificial tears once or twice a day which do help. Patient also has been having multiple GI complaints with dyspepsia and acid reflux. He had an EGD and biopsy which showed reflux esophagitis and was started on a PPI. Patient also states that he gets cold quite easily but denies any significant color changes of his fingers or toes. Current Rheumatology Medication(s): cevimeline 30mg bid PFSH Medical History Scoliosis Seasonal affective disorder Diarrhea IBS (irritable bowel syndrome) Leukopenia Liver cyst Esophageal dysmotility Keratoconjunctivitis MARLO positive Sjogrens syndrome Inguinal hernia Hiatal hernia Surgical History Hx of tonsillectomy History of removal of skin mole Hx of colonoscopy Family History Father Gout Mother History of Roxi thyroiditis Maternal Uncle Acute arthritis Social History Household Members: Family Alcohol intake: never Patient Tobacco Use Status: Never used Tobacco Current occupational status: unemployed Review of Systems Const Details: Review of Systems Constitutional: Denies fever, chills, weight loss ENT: Denies vision changes, eye pain or eye redness, dental caries, dry mouth GI: Denies nausea, vomiting, diarrhea, abdominal pain, change in BM Pulm: Denies SOB, GUERRERO, hemoptysis, wheezing Cards: Denies chest pain, palpitations Skin: Denies Raynaud's, rash, nail changes, photosensitivity, TEMPLATE FITTER: Denies headaches, weakness, paresthesias, recurrent falls MSK: as per HPI All other systems reviewed and are unremarkable except noted above Physical Exam Exam Exam: Vital signs reviewed Physical Examination CONSTITUITIONAL Patient alert and cooperative. Well appearing and in no apparent painful distress HEENT Conjunctiva and sclera clear. No lymphadenopathy. CHEST/RESPIRATORY SYSTEM Normal respiratory effort and able to speak in complete sentences. Clear to auscultation bilaterally. No crackles, rales, rhonchi, wheezes heard. CARDIAC SYSTEM Regular rate and rhythm. S1 and S2 heard no murmurs. Radial pulses intact bilaterally MSK Hands * Right Hand: Able to make a fist. No swelling or tenderness to palpation of these joints. No deformities noted. * Left Hand: Able to make a fist. No swelling or tenderness to palpation of these joints. No deformities noted. Wrists * Right Wrist: Full ROM. 70 degrees of wrist flexion, 80 degrees of wrist extension. No swelling or TTP * Left Wrist: Full ROM. 70 degrees of wrist flexion, 80 degrees of wrist extension. No swelling or TTP Elbows * Right Elbow: Full ROM. No swelling or TTP. No TTP of the medial and lateral epicondyles * Left Elbow: Full ROM. No swelling or TTP. No TTP of the medial and lateral epicondyles Shoulders * Right shoulder: Full ROM. No swelling noted. No TTP of the AC joint, subacromial bursa or posterior shoulder * Left shoulder: Full ROM. No swelling noted. No TTP of the AC joint, subacromial bursa or posterior shoulder Knees * Right knee: Full ROM. No swelling noted. No TTP of the knee joint lie or pes anserine bursa * Left knee: Full ROM. No swelling noted. No TTP of the knee joint lie or pes anserine bursa. Ankles * Right ankle: Good ankle dorsiflexion and plantar flexion. No swelling. No TTP of the ankle joint * Left ankle: Good ankle dorsiflexion and plantar flexion. No swelling. No TTP of the ankle joint Feet * Right foot: Negative squeeze test * Left foot: Negative squeeze test Tender points? * No tenderness to palpation of the bilateral trapezius, supraspinatus, anterior costochondral junctions, bilateral suboccipital muscle insertions SKIN No rashes Vital Signs: Last Vital Signs Pulse 103 H 10/08/24 13:24 BP 110/62 10/08/24 13:24 Pulse Ox 96 10/08/24 13:24 Oxygen Delivery Method Room Air 10/08/24 13:24 BMI result Body Mass Index 26.1 Results Reviewed Results Reviewed: f/u labs done today Assessment & Plan Assessment & Plan (1) Sjogren syndrome with keratoconjunctivitis: Comment: started in 2017 (arthralgias, dry eyes, dry mouth, lip biopsy showing lymphocytic sialadenitis, MARLO 1-1280) Code(s): M35.01 - Sjogren syndrome with keratoconjunctivitis Category: Medical Plan: #Sjogren's syndrome Patient is a 34-year-old male with Sjogren's syndrome here today for follow up. No inflammatory arthritis symptoms or synovitis at this time. Plan - Continue cevimeline 30mg bid - Conservative management of sicca sx - Follow up labs done today - RTC 1 year - Labs before visit: CBC, CMP, ESR, CRP, C3, C4, RF, SPEP Plan I spent 20 minutes reviewing the record and labs, taking a history, examining the patient, discussing the treatment plan, ordering diagnostic work up and documenting in the medical record Orders: Orders Rheumatoid Factor 1 Year . - Sjogren syndrome, unspecified Erythrocyte Sedimentation Rate 1 Year . - Sjogren syndrome, unspecified Comprehensive Met. Panel 1 Year . - Sjogren syndrome, unspecified Protein Electrophoresis, Serum 1 Year . - Sjogren syndrome, unspecified Complete Blood Count Auto Diff 1 Year . - Sjogren syndrome, unspecified Complement C4 1 Year . - Sjogren syndrome, unspecified C Reactive Protein 1 Year . - Sjogren syndrome, unspecified Complement C3 1 Year . - Sjogren syndrome, unspecified Medications: Changed From cevimeline 1 cap PO BID 360 caps 0RF . - Sjogren syndrome with keratoconjunctivitis To cevimeline 1 cap PO BID 180 caps 4RF 90 days . - Sjogren syndrome with keratoconjunctivitis Coding Level of Care Code Est Pt Level 3 (14909) Diagnoses Sjogren syndrome with keratoconjunctivitis
== END 2024-10-08 14:07 | disposition home or self-care (01) ==
LOC: HO.RHE 13:19
PROVIDERS: PCP Pediatrics; Visit Provider Student in an Organized Health Care Education/Training Program
DX: M35.01 Sjogren syndrome with keratoconjunctivitis (principal)
CPT/HCPCS: 99213